=== PATIENT | female | born 1955 | race Caucasian/White ===

== ENCOUNTER → 2020-08-07 | Outpatient (CLI) | payer MEDICARE, OTHER ==
[~2020-08-07] MED LIST: COMBIVENT0.074 GM/I INH; ECOTRIN81 MG PO; FLEXERIL 10 MG10 MG PO; FLEXERIL 5 MG PO; FOLIC ACID 1 MG1 MG PO; K-DUR TAB 10 M10 MEQ PO; LEVOTHYROXINE112 MCG PO; MIDODRINE HCL2.5 MG PO; PAIN RELIEVER650 MG PO; TAMIFLU75 MG PO; VITAMIN D21250 MCG PO; Voltaren Gel 1 % TOP
== END ==
LOC: HEART 5 11:26
DX: J44.9 Chronic obstructive pulmonary disease, unspecified (principal); R94.2 Abnormal results of pulmonary function studies
CPT/HCPCS: 94010

== ENCOUNTER → 2021-03-27 | Outpatient (CLI) | payer MEDICARE, OTHER ==
[~2021-03-27] MED LIST changes: +PREDNISONE20 MG PO; +PROVENTIL HFA6.7 GM INH; +[UNRECOGNIZED DRUG - OTHER] VI
== END ==
LOC: KOH-I 10:00
DX: F17.210 Nicotine dependence, cigarettes, uncomplicated (principal); R91.1 Solitary pulmonary nodule
CPT/HCPCS: 71271

== ENCOUNTER 2021-03-28 12:51 | Emergency (ER) | payer MEDICARE, OTHER ==
[~2021-03-28 12:51] MED LIST changes: -PREDNISONE20 MG PO; -PROVENTIL HFA6.7 GM INH; -[UNRECOGNIZED DRUG - OTHER] VI
[2021-03-28 14:08] LABS: HEMOGLOBIN 16.5 gm/dl (12.3-15.3); RED BLOOD COUNT 5.29 M/UL (4.00-5.10); WHITE BLOOD COUNT 8.9 K/UL (4.5-11.0)
[2021-03-28 14:41] LABS: BUN/CREATININE RATIO 16 (0-10)
[2021-03-28] MEDS ORDERED: PREDNISONE20 MG PO (16:06)
[2021-03-28] MEDS ORDERED: [UNRECOGNIZED DRUG - OTHER] VI (16:06)
[2021-03-28] MEDS ORDERED: PROVENTIL HFA6.7 GM INH (16:06)
== END 2021-03-28 16:15 | disposition home or self-care (01) ==
LOC: ER1 12:51
PROVIDERS: Family Medicine
DX: J40 Bronchitis, not specified as acute or chronic (principal); F17.210 Nicotine dependence, cigarettes, uncomplicated; Z20.822 Contact with and (suspected) exposure to COVID-19
CPT/HCPCS: 71046; 80053; 82550; 82553; 83874; 84484; 85025; 93005; 96374; 99284; J2930; J3480; U0002

== ENCOUNTER 2022-02-01 13:22 | Emergency (ER) | payer MEDICARE, MEDICAID ==
[~2022-02-01] VITALS: Ht 154.9 cm; Wt 66.7 kg
[2022-02-01 15:04] LABS: HEMOGLOBIN 15.9 gm/dl (12.3-15.3); RED BLOOD COUNT 5.02 M/UL (4.00-5.10); WHITE BLOOD COUNT 9.7 K/UL (4.5-11.0)
[2022-02-01 15:29] LABS: BUN/CREATININE RATIO 11 (0-10)
== END 2022-02-02 13:10 | disposition short-term general hospital (02) ==
LOC: ER1 13:22
PROVIDERS: Physician Assistant
DX: I70.8 Atherosclerosis of other arteries (principal); R91.1 Solitary pulmonary nodule; F17.200 Nicotine dependence, unspecified, uncomplicated; J44.9 Chronic obstructive pulmonary disease, unspecified; Z88.2 Allergy status to sulfonamides; Z88.0 Allergy status to penicillin; Z79.82 Long term (current) use of aspirin
CPT/HCPCS: 71045; 80053; 82550; 82553; 84484; 85025; 85610; 85730; 93005; 96374; 99285; J1644; Q9967

== ENCOUNTER → 2022-02-01 | Outpatient (CLI) | payer MEDICARE ==
[~2022-02-01] MED LIST changes: +PREDNISONE20 MG PO; +PROVENTIL HFA6.7 GM INH; +[UNRECOGNIZED DRUG - OTHER] VI
== END ==
LOC: KOH-I 10:30
DX: M79.602 Pain in left arm (principal); M79.89 Other specified soft tissue disorders; I77.1 Stricture of artery
CPT/HCPCS: 93931; 93971